=== PATIENT | female | born 1975 | race Caucasian/White ===

== ENCOUNTER 2022-11-04 10:14 | Outpatient (CLI) | payer BC, SELFPAY ==
[2022-11-04 14:47] LABS: Basophils Absolute Auto 0.04 K/uL (0.00-0.30); Basophils Percent Auto 0.5 % (0.0-3.0); Eosinophils Absolute Auto 0.26 K/uL (0.00-0.50); Eosinophils Percent Auto 3.1 % (0.0-7.0); Hematocrit 37.8 % (33.0-51.0); Hemoglobin* 11.8 gm/dL (12.0-16.0); Immature Granulocytes Abs Auto 0.02 K/uL (0.00-0.30); Immature Granulocytes Pct Auto 0.2 %; Lymphocytes Absolute Auto 2.58 K/uL (0.90-2.90); Lymphocytes Percent Auto 30.9 % (20-44); Mean Corpuscular HGB Conc 31 gm/dL (32-36); Mean Corpuscular Hemoglobin 27 pg (26-34); Mean Corpuscular Volume 87 fL (80-100); Monocytes Percent Auto 7.8 % (0.0-11.0); Neutrophils Percent Auto 57.5 % (42.0-72.0); Platelet Count* 311 K/uL (140-440); RDW Coefficient of Variation % 14.1 % (11.5-15.5); Red Blood Count 4.35 m/uL (4.00-5.20); White Blood Count* 8.35 K/uL (4.50-11.00)
[2022-11-04 14:55] LABS: Slide Review Reflex No
[2022-11-04 15:14] LABS: Chloride* 112 mmol/L (96-114)
[2022-11-04 15:15] LABS: Potassium* 4.7 mmol/L (3.6-5.1); Sodium* 141 mmol/L (135-149)
[2022-11-04 15:17] LABS: Carbon Dioxide* 23 mmol/L (20-32); Cholesterol* 229 mg/dL (90-199); Creatinine* 1.1 mg/dL (0.5-1.5); Estimated Glomerular Filt Rate 62 ml/min
[2022-11-04 15:18] LABS: Blood Urea Nitrogen* 12 mg/dL (5-24); Calcium* 9.3 mg/dL (8.4-10.6); Glucose* 87 mg/dL (60-115); HDL Cholesterol* 59 mg/dL (>=50); LDL Cholesterol Calculated 134 mg/dL (<100); Triglycerides* 180 mg/dL (40-149)
[2022-11-04 18:37] LABS: Vitamin B12* 917 pg/mL (243-894)
== END 2022-11-04 10:15 | disposition home or self-care (01) ==
PROVIDERS: PCP Family Medicine; Visit Provider Family Medicine
DX: Z01.419 Encounter for gynecological examination (general) (routine) without abnormal findings (principal); E78.5 Hyperlipidemia, unspecified; E53.8 Deficiency of other specified B group vitamins; D64.9 Anemia, unspecified; R53.83 Other fatigue
CPT/HCPCS: 80048; 80061; 82607; 84443; 85025

== ENCOUNTER 2024-04-10 13:36 | Outpatient (CLI) | payer BC, SELFPAY | END 2024-04-10 13:37 | disposition home or self-care (01) | PROVIDERS: PCP Family Medicine; Visit Provider Family Medicine | DX: E78.2 Mixed hyperlipidemia (principal); F41.1 Generalized anxiety disorder; F33.9 Major depressive disorder, recurrent, unspecified | CPT/HCPCS: 80048; 80061; 84460 ==

== ENCOUNTER 2024-10-25 08:48 | Outpatient (RCR) | payer BC, SELFPAY ==
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
== END 2025-02-22 23:59 | disposition home or self-care (01) ==
PROVIDERS: PCP Family Medicine; Visit Provider Physician Assistant
DX: G89.4 Chronic pain syndrome (principal); Z91.89 Other specified personal risk factors, not elsewhere classified; Z51.89 Encounter for other specified aftercare
CPT/HCPCS: 97165; 97535

== ENCOUNTER 2025-02-24 13:57 | Emergency (ER) | payer BC, SELFPAY ==
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
--- OUTSIDE RECORDS SUMMARY | 2025-02-24 14:00 | XMS_ITS | Clinical Summary ---
Author Organization [facility] Address [address] [place] [address] Care Team Providers Care Media Planner / Buyer Name Role Phone Unknown, Md Primary Care Provider Unavailabl e Unknown, Md Unavailable Unavailable Allergies Active Allergy Reactions Criticality Noted Date Comments [place] 03/17/2022 Shrimp 03/16/2022 Influenza Virus Vaccines 03/16/2022 [...] 03/16/2022 7:43 PM CDT Plan of Treatment Health Maintenance Due Date Last Done Comments Colonoscopy 1974 Hepatitis C Screening 1974 Mammogram Screening 1974 Pap Smear 1974 Anxiety Screening (MANJEET-2) 1975 Depression Assessment (PHQ-2) 1975 COVID-19 Vaccine (1 - 2023-2 5 season) 2024 Pneumococcal 50+ Years (1 of 1 - PCV) 2024 Yearly Review of HCD 2024 03/16/2022 Zoster Vaccine (1 of 2) 2024 Influenza Vaccine (Season Ended) 2025 Adult Tetanus Booster 03/02/2030 03/02/2020 RSV Vaccines (1 - 1-dose 75+ series) 2049 Pneumococcal Vaccine Aged Out No long er eligible based on patient's age to complete this topic Advance Directives For more information, please contact: [phone] * Full Code (Latest Code Status on File) Date Activated Date Inactivated Comments 03/16/2022 7:32 PM 03/17/2022 11:24 PM Question Answer Comments How was code status determined? Physician Determ ined Care Teams Media Planner / Buyer Relationship Specialty Start Date End Date David, NO ADDRESS/PHONE/FAX AFFILIATED PCP - General 03/16/22 Unknown, NO ADDRESS/PHONE/FAX AFFILIATED PCP - [facility] 03/16/22
[2025-02-24 14:08] VITALS: BP 112/68; PULSE 73; RESP 18; TEMP 36.1; O2SAT 98; BMI 29.7
--- NOTE | 2025-02-24 14:42 | CRLHL7_ITS ---
For Patients: As a result of the Century Cures Act, medical imaging exams and procedure reports are released immediately into your electronic medical record. You may view this report before your referring provider. If you have questions, please contact your health care provider. INDICATION: Left lower quadrant pain TECHNIQUE: CT abdomen and pelvis with 84 mL Isovue 370 intravenous contrast. COMPARISON: None. FINDINGS: Lower chest: Unremarkable. Liver: Normal in size and attenuation. No suspicious masses. Gallbladder and bile ducts: Cholecystectomy Pancreas: Unremarkable. No mass or inflammation. Spleen: Normal in size. No masses. Adrenal glands: Normal in size. No nodules. Kidneys: Nonobstructing left renal calculus. Too small to characterize low-attenuation lesion right kidney. GI tract: Unremarkable. Normal in caliber. No sign of mass or inflammation. Normal appendix. Vasculature: Abdominal aorta is normal in caliber. Lymph nodes: No lymphadenopathy. Peritoneum/Abdominal Wall: Unremarkable. No sign of mass or infiltration. No free air or significant free fluid. Pelvis: 1.7 centimeter left ovarian cyst. Bones: Old bilateral rib fractures. Neurostimulator leads bilaterally. IMPRESSION: No acute findings in the abdomen or pelvis. Please note that all CT scans at this facility use dose modulation, iterative reconstruction, and/or weight-based dosing when appropriate to reduce radiation dose to as low as reasonably achievable. Dictated by Anna Mendez MD @ 02/24/2025 3:41:37 PM (Electronically Signed)
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
[2025-02-24 15:10] LABS: Basophils Absolute Auto 0.01 K/uL (0.00-0.30); Basophils Percent Auto 0.2 % (0.0-3.0); Hematocrit 36.9 % (33.0-51.0); Hemoglobin* 11.9 gm/dL (12.0-16.0); Immature Granulocytes Abs Auto 0.08 K/uL (0.00-0.30); Immature Granulocytes Pct Auto 1.3 %; Lymphocytes Percent Auto 16.2 % (20-44); Mean Corpuscular HGB Conc 32 gm/dL (32-36); Mean Corpuscular Hemoglobin 26 pg (26-34); Mean Corpuscular Volume 82 fL (80-100); Monocytes Percent Auto 8.5 % (0.0-11.0); Neutrophils Percent Auto 73.8 % (42.0-72.0); Platelet Count* 194 K/uL (140-440); RDW Coefficient of Variation % 15.1 % (11.5-15.5); Red Blood Count 4.51 m/uL (4.00-5.20); White Blood Count* 6.25 K/uL (4.50-11.00)
[2025-02-24 15:25] LABS: Chloride* 112 mmol/L (96-114); Potassium* 3.2 mmol/L (3.6-5.1); Sodium* 142 mmol/L (135-149)
[2025-02-24 15:28] LABS: Anion Gap 11 mEq/L (7-15); Blood Urea Nitrogen* 7 mg/dL (7-30); Calcium* 9.1 mg/dL (8.4-10.6); Carbon Dioxide* 19 mmol/L (20-32); Creatinine* 0.9 mg/dL (0.5-1.5); Est. Creatinine Clearance* 64.58; Estimated Glomerular Filt Rate 78 ml/min; Glucose* 107 mg/dL (60-115); Lipase* 312 U/L (23-300)
[2025-02-24 15:37] LABS: Slide Review Reflex No
--- OUTSIDE RECORDS SUMMARY | 2025-02-24 15:46 | XMS_ITS | Clinical Summary ---
Author Organization [facility] Address [address] [place] [address] Care Team Providers Care Salesperson Recreational Vehicles Name Role Phone Unknown, Md Primary Care Provider Unavailabl e Unknown, Md Unavailable Unavailable Allergies Active Allergy Reactions Criticality Noted Date Comments [place] 03/17/2022 Shrimp 03/16/2022 Influenza Virus Vaccines 03/16/2022 [...] Advance Directives For more information, please contact: [phone] * Full Code (Latest Code Status on File) Date Activated Date Inactivated Comments 03/16/2022 7:32 PM 03/17/2022 11:24 PM Question Answer Comments How was code status determined? Physician Determ ined Care Teams Salesperson Recreational Vehicles Relationship Specialty Start Date End Date David, NO ADDRESS/PHONE/FAX AFFILIATED PCP - General 03/16/22 Unknown, NO ADDRESS/PHONE/FAX AFFILIATED PCP - [facility] 03/16/22
--- OUTSIDE RECORDS SUMMARY | 2025-02-24 15:46 | XMS_ITS | Referral Summary ---
Author Organization [facility] Address [address] [place] [address] Care Team Providers Care Watch Parts Inspector Name Role Phone Unknown, Md Primary Care Provider Unavailabl e Unknown, Md Unavailable Unavailable Allergies Active Allergy Reactions Criticality Noted Date Comments [place] 03/17/2022 Shrimp 03/16/2022 Influenza Virus Vaccines 03/16/2022 [...] Advance Directives For more information, please contact: [phone] * Full Code (Latest Code Status on File) Date Activated Date Inactivated Comments 03/16/2022 7:32 PM 03/17/2022 11:24 PM Question Answer Comments How was code status determined? Physician Determ [facility] Care Teams Watch Parts Inspector Relationship Specialty Start Date End Date Unknown, NO ADDRESS/PHONE/FAX AFFILIATED PCP - General 03/16/22 Unknown, NO ADDRESS/PHONE/FAX AFFILIATED PCP - [facility] 03/16/22
[2025-02-24] MEDS: KETOROLAC 15 MG/ML inj IVP (16:07)
[2025-02-24] MEDS: ONDANSETRON 2 MG/ML inj 4 MG IVP (16:07)
[2025-02-24] MEDS: 0.9 % SODIUM CHLORIDE 1000 ml 1,000 ML IV (16:07)
[2025-02-24] MEDS: droperidoL 2.5 MG/ML inj 0.625 MG IV (16:07)
[2025-02-24 16:33] LABS: PCR FLU A Negative PCR FLU A (Negative); PCR FLU B Negative PCR FLU B (Negative); PCR RSV Negative PCR RSV (Negative); SARS PCR* Negative SARS-CoV-2 (Negative)
[2025-02-24 17:14] VITALS: BP 174/90; PULSE 75; RESP 16
== END 2025-02-24 17:15 | disposition home or self-care (01) ==
PROVIDERS: Emergency Provider Student in an Organized Health Care Education/Training Program; PCP Family Medicine
DX: R10.32 Left lower quadrant pain (principal)
CPT/HCPCS: 36415; 74177; 80048; 81001; 83690; 85025; 87631; 93005; 96374; 96375; 99284; 99285; J1790; J1885; J2405; J7030; Q9967

== ENCOUNTER 2025-06-24 12:02 | Outpatient (CLI) | payer BC, SELFPAY | END 2025-06-24 12:03 | disposition home or self-care (01) | PROVIDERS: PCP Family Medicine; Visit Provider Family Medicine | DX: E78.2 Mixed hyperlipidemia (principal) | CPT/HCPCS: 80048; 80061; 84460 ==